=== PATIENT | male | born 1965 | race Caucasian/White ===

== ENCOUNTER 2022-02-06 09:51 | Emergency (ER) | payer SELFPAY ==
[2022-02-06] MEDS ORDERED: Diphtheria,Pertussis(Acell),Tetanus Vaccine 0.5 ML SDV IM ONE (10:00)
[2022-02-06 10:15] VITALS: PULSE 72
[2022-02-06] MEDS ORDERED: Lidocaine 1% PF 2 ML SDV INFILT ONE (10:22)
[2022-02-06 10:48] VITALS: BP 146/89
== END 2022-02-06 10:40 | disposition home or self-care (01) ==
LOC: LB.ED 09:51
DX: S01.01XA Laceration without foreign body of scalp, initial encounter (principal); Z23 Encounter for immunization; W00.0XXA Fall on same level due to ice and snow, initial encounter
CPT/HCPCS: 12001; 90471; 90715; 99282-25

== ENCOUNTER 2024-06-21 09:40 | Day surgery (SDC) | payer BC ==
[~2024-06-21 09:40] MED LIST: Metoclopramide 10 MG/2 ML SDV IV PRN
[2024-06-21] MEDS: Sodium Chloride 0.9% 1,000 ML IV SCH (10:14)
[2024-06-21] MEDS ORDERED: Propofol 500 MG/50 ML SDV ONE (11:00)
== END 2024-06-21 12:05 | disposition home or self-care (01) ==
LOC: LB.SDS 09:40
PROVIDERS: ATTEND Surgery
DX: Z12.11 Encounter for screening for malignant neoplasm of colon (principal); K57.30 Diverticulosis of large intestine without perforation or abscess without bleeding; I10 Essential (primary) hypertension; Z80.0 Family history of malignant neoplasm of digestive organs
CPT/HCPCS: J2704; J7030